=== PATIENT | male | born 1955 | race Caucasian/White ===

== ENCOUNTER 2020-02-22 16:43 | Emergency (ER) | payer BC ==
[2020-02-22] MEDS ORDERED: Sodium Chloride 0.9% 1,000 ML IV STA (17:08)
[2020-02-22] MEDS ORDERED: Ondansetron 4 MG/2 ML SDV IVPUSH ONE (17:08)
--- NOTE | 2020-02-22 17:15 | EDM.PDOC ---
ED HPI GENERAL MEDICAL PROBLEM - General Chief Complaint: Neurological Problem Stated Complaint: VOMITING AND DIZZY Time Seen by Provider: 02/22/20 17:00 Source of Information: Reports: Patient, RN Notes Reviewed History Limitations: Reports: No Limitations - History of Present Illness INITIAL COMMENTS - FREE TEXT/NARRATIVE: Patient is a 64-year-old male presenting to the emergency department with complaints of acute onset of dizziness and vomiting. He states he was cleaning his grill when the symptoms hit. He states that a combination of ceiling feeling somewhat lightheaded and "spinning ". Times are significantly worse with lying flat. He does have a history of vertigo symptoms in the past. States he used to "get the spins "when he would lay down. He saw an ear doctor who was able to resolve this with Rae maneuvers. He denies any ear pain or pressure. He has not fallen or hit his head recently. Denies any headache. Denies any focal neurologic deficits. - Related Data Allergies Allergy/AdvReac Type Severity Reaction Status Date / Time No Known Allergies Allergy Verified 02/22/20 17:00 Home Meds: Home Meds Metoclopramide HCl [Reglan] 10 mg PO Q8H #9 tablet 02/22/20 [Rx] Past Medical History Cardiovascular History: Reports: Hypertension Social & Family History - Tobacco Use Tobacco Use Status *Q: Never Tobacco User Second Hand Smoke Exposure: No - Caffeine Use Caffeine Use: Reports: None - Recreational Drug Use Recreational Drug Use: No ED ROS GENERAL - Review of Systems Review Of Systems: See Below Constitutional: Reports: No Symptoms. Denies: Fever, Chills HEENT: Reports: No Symptoms. Denies: Ear Discharge, Ear Pain, Eye Discharge, Hearing Loss Respiratory: Reports: No Symptoms Cardiovascular: Reports: No Symptoms. Denies: Chest Pain Endocrine: Reports: No Symptoms GI/Abdominal: Reports: Nausea, Vomiting. Denies: Abdominal Pain, Diarrhea : Reports: No Symptoms Musculoskeletal: Reports: No Symptoms Skin: Reports: No Symptoms Neurological: Reports: Dizziness. Denies: Confusion, Headache, Numbness, Change in Speech, Gait Disturbance Psychiatric: Reports: No Symptoms Hematologic/Lymphatic: Reports: No Symptoms Immunologic: Reports: No Symptoms ED EXAM, DIZZINESS - Physical Exam Exam: See Below Exam Limited By: No Limitations General Appearance: Alert, WD/WN, Anxious Ears: Normal External Exam, Normal Canal, Hearing Grossly Normal, Normal TMs Head Exam: Atraumatic, Normocephalic Vertigo: constant (worsens with lying down) Neck: Normal Inspection, Supple, Non-Tender, Full Range of Motion Respiratory/Chest: No Respiratory Distress, Lungs Clear, Normal Breath Sounds, No Accessory Muscle Use, Chest Non-Tender Cardiovascular: Normal Peripheral Pulses, Regular Rate, Rhythm, No Edema, No Gallop, No JVD, No Murmur, No Rub GI/Abdominal: Normal Bowel Sounds, Soft, Non-Tender, No Organomegaly, No Distention, No Abnormal Bruit, No Mass Neurological: Alert, Normal Mood/Affect, Normal Dorsiflexion, CN II-XII Intact, Normal Plantar Flexion, Normal Gait, Normal Reflexes, No Motor/Sensory Deficits, Oriented x 3 Psychiatric: Normal Affect, Normal Mood Skin Exam: Warm, Dry, Intact, Normal Color, No Rash Course - Vital Signs Last Recorded V/S: Last Vital Signs Temp 98 F 02/22/20 16:58 Pulse 93 02/22/20 16:58 Resp 18 02/22/20 16:58 BP 120/70 02/22/20 18:51 Pulse Ox 100 02/22/20 18:51 - Orders/Labs/Meds Labs: Laboratory Tests 02/22/20 02/22/20 Range/Units 17:15 17:15 WBC 8.29 (4.23-9.07) K/mm3 RBC 5.32 (4.63-6.08) M/mm3 Hgb 16.0 (13.7-17.5) gm/dl Hct 46.4 (40.1-51.0) % MCV 87.2 D (79.0-92.2) fl MCH 30.1 (25.7-32.2) pg MCHC 34.5 (32.2-35.5) g/dl RDW Std Deviation 38.8 (35.1-43.9) fL Plt Count 111 L (163-337) K/mm3 MPV 11.0 (9.4-12.3) fl Neut % (Auto) 82.5 H (34.0-67.9) % Lymph % (Auto) 11.2 L (21.8-53.1) % [place] % (Auto) 5.1 L (5.3-12.2) % Eos % (Auto) 0.6 L (0.8-7.0) Baso % (Auto) 0.2 (0.1-1.2) % Neut # (Auto) 6.84 H (1.78-5.38) K/mm3 Lymph # (Auto) 0.93 L (1.32-3.57) K/mm3 [place] # (Auto) 0.42 (0.30-0.82) K/mm3 Eos # (Auto) 0.05 (0.04-0.54) K/mm3 Baso # (Auto) 0.02 (0.01-0.08) K/mm3 Sodium 136 (136-145) mEq/L Potassium 3.6 (3.5-5.1) mEq/L Chloride 99 (98-107) mEq/L Carbon Dioxide 25 (21-32) mEq/L Anion Gap 15.6 H (5-15) BUN 19 H (7-18) mg/dL Creatinine 1.2 (0.7-1.3) mg/dL Est Cr Clr Drug Dosing 63.01 mL/min Estimated GFR (MDRD) > 60 (>60) mL/min BUN/Creatinine Ratio 15.8 (14-18) Glucose 214 H (80-115) mg/dL Calcium 8.8 (8.5-10.1) mg/dL Magnesium 1.8 (1.8-2.4) mg/dl Total Bilirubin 0.7 (0.2-1.0) mg/dL AST 37 (15-37) U/L ALT 87 H (16-63) U/L Alkaline Phosphatase 50 (46-116) U/L C-Reactive Protein 0.8 (<1.0) mg/dL Total Protein 7.6 (6.4-8.2) g/dl Albumin 3.9 (3.4-5.0) g/dl Globulin 3.7 gm/dL Albumin/Globulin Ratio 1.1 (1-2) Meds: Medications Discontinued Medications Generic Name Dose Route Start Last Admin Trade Name Freq PRN Reason Stop Dose Admin Sodium Chloride 1,000 mls @ 150 mls/hr 02/22/20 17:08 02/22/20 17:16 Normal Saline IV 02/22/20 23:47 150 mls/hr NOW STA Administration Meclizine HCl 25 mg 02/22/20 17:08 02/22/20 17:16 Antivert PO 02/22/20 17:09 25 mg ONETIME ONE Administration Metoclopramide HCl 7.5 mg 02/22/20 17:55 02/22/20 18:17 Reglan IVPUSH 02/22/20 17:56 7.5 mg ONETIME ONE Administration Ondansetron HCl 4 mg 02/22/20 17:08 02/22/20 17:16 Zofran IVPUSH 02/22/20 17:09 4 mg ONETIME ONE Administration - Re-Assessments/Exams Free Text/Narrative Re-Assessment/Exam: Patient is a 64-year-old male presenting to the emergency department with complaints of acute onset of dizziness and vomiting around 11 AM this morning. States that he was cleaning his grill when the sensation suddenly hit him. Symptoms are worse with lying flat. He has had vertigo in the past which she describes as "the spins "when he lays down. He has had Rae maneuvers done to correct this but it was many years ago. He denies any recent head trauma. Has no headache. Denies any focal neurologic deficits. I ordered CBC, CMP, CRP, and a CT scan of the head. We will give him IV fluids of NS at 150 mils per hour, Zofran 4 mg IV, and meclizine 25 mg p.o. 02/22/20 17:57 Patient had some improvement with Zofran and meclizine, however does still feel some nausea and mild dizziness. I have ordered Reglan 7.5 mg IV. 02/22/20 18:44 Patient is feeling much better after the Reglan. Head CT showed no acute abnormalities. Blood work was grossly unremarkable. We will discharge him home with a prescription for Reglan 10 mg every 8 hours. Recommend follow-up with his PCP, Salbador Purdy, at his next available visit. Return to ER for worsening symptoms. Discharge instructions as documented. Departure - Departure Time of Disposition: 18:44 Disposition: Home, Self-Care 01 Condition: Good Clinical Impression: Vertigo - Discharge Information *PRESCRIPTION DRUG MONITORING PROGRAM REVIEWED*: No *COPY OF PRESCRIPTION DRUG MONITORING REPORT IN PATIENT KEELY: No Prescriptions: Metoclopramide HCl [Reglan] 10 mg PO Q8H #9 tablet Instructions: Dizziness, [id number] Referrals: Salbador Purdy PA-C [Primary Care Provider] - Forms: ED Department Discharge Additional Instructions: You were seen in the emergency department today for dizziness with vomiting. Work-up included blood work, and a CT scan of your head. Results your work-up were found to be normal. Your exam findings were consistent with symptoms of vertigo. While in the ER, you received IV fluids, meclizine, Zofran, and Reglan which did resolve your symptoms. A prescription for Reglan has been sent to [facility]. Take this medication as prescribed. If you should experience restlessness or jitteriness with this, you may use Benadryl if needed. If your symptoms fail to resolve with this medication, please not hesitate to return to the emergency department. Recommend follow-up with your primary care provider early next week for reevaluation and possible referral to physical therapy as n eeded. Sepsis Event Note (ED) - Evaluation Sepsis Screening Result: No Definite Risk
[2020-02-22] MEDS ORDERED: Metoclopramide 10 MG/2 ML SDV IVPUSH ONE (17:55)
--- NOTE | 2020-02-23 10:02 | CT ---
Head CT Technique: Multiple axial sections through the brain were obtained. Intravenous contrast was not utilized. Comparison: No prior intracranial imaging is available. Findings: Ventricles along with basal cisterns and sulci over the convexities are mildly prominent. No abnormal parenchymal densities are appreciated. Minimal basal ganglia calcification is seen. No intracranial hemorrhage or mass-effect is appreciated. Bone window settings were reviewed. Visualized paranasal sinuses and mastoid sinuses show nothing acute. No acute calvarial finding is appreciated. Slight vascular calcification is seen within the carotid siphon. Impression: 1. Minimal senescent change as noted above. 2. Nothing acute is definitely appreciated on noncontrast head CT study. Diagnostic code #2 I agree with preliminary report from [facility], finalized on 02/22/20, 6:58 PM OCCUPATIONAL THERAPY TECHNICIAN
== END 2020-02-22 18:55 | disposition home or self-care (01) ==
LOC: JD.ED 16:43
DX: R42 Dizziness and giddiness (principal); R11.2 Nausea with vomiting, unspecified; I10 Essential (primary) hypertension
CPT/HCPCS: 36415; 70450; 70450-26; 80053; 83735; 85025; 86140; 96374; 96375; 99284-25; A9270-GY; J2405; J2765; J7030